=== PATIENT | male | born 1975 | race Caucasian/White ===

== ENCOUNTER 2019-09-18 07:29 | Day surgery (SDC) | payer OTHER ==
[2019-09-17 09:38] LABS: BASOPHILS % (AUTO) 0.4 % (0-1); EOSINOPHILS # (AUTO) 0.5 X10'3 (0-0.9); EOSINOPHILS % (AUTO) 5.7 % (0-6); LYMPHOCYTES # (AUTO) 2.9 X10'3 (1.1-4.8); MEAN CORPUSCULAR HEMOGLOBIN 30.7 PG (27.0-31.0); MEAN CORPUSCULAR VOLUME 90.4 FL (78-98); MONOCYTES # (AUTO) 0.7 X10'3 (0-0.9); MONOCYTES % (AUTO) 8.7 % (2-12); NEUTROPHILS # (AUTO) 4.1 X10'3 (1.8-7.7); NEUTROPHILS % (AUTO) 50.2 % (42-75); PRE OP HEMATOCRIT 44.8 % (42.0-52.0); PRE OP HEMOGLOBIN 15.2 g/dL (14.0-17.9); PRE OP PLATELET COUNT 228 X10'3 (140-440); RED BLOOD COUNT 4.96 X10'6 (4.70-6.10); RED CELL DISTRIBUTION WIDTH 12.5 % (11.5-14.5)
[2019-09-17 09:56] LABS: ALBUMIN 4.3 G/DL (3.4-5.0); ALKALINE PHOSPHATASE 62 IU/L (46-116); BLOOD UREA NITROGEN 14 MG/DL (7-18); BUN/CREATININE RATIO 14.1 (5.4-32.0); CALCIUM 9.4 MG/DL (8.5-10.1); CHLORIDE 103 MMOL/L (99-107); CREATININE 0.99 MG/DL (0.60-1.10); PRE OP ANION GAP 10 (8-16); PRE OP AST 50 U/L (10-37); PRE OP BILIRUB, TOTAL 1.1 MG/DL (0.0-1.0); PRE OP GLUCOSE 98 MG/DL (70-104); PRE OP POTASSIUM 4.2 MMOL/L (3.4-5.1); PRE OP SODIUM 139 MMOL/L (135-145); TOTAL CARBON DIOXIDE 26.1 MMOL/L (24-32); TOTAL PROTEIN 8.4 G/DL (6.4-8.2); eGFR 83 ML/MIN
[2019-09-17 09:57] LABS: PRE OP ALT 134 U/L (30-65)
[~2019-09-18] VITALS: Ht 182.9 cm; Wt 110.7 kg
[2019-09-18] VITALS (13 sets, daily range): BP systolic 124–159; BP diastolic 68–97
[~2019-09-18 07:29] MED LIST: BUPIVAcaine/PF 2.5 mg/ml (0.25%) 30ml vial ONE; LIDOcaine 1% 30ml preserv. free vial ONE; NO HOME MEDS
[2019-09-18] MEDS ORDERED: famotidine 20mg tablet PO ONE (08:35)
[2019-09-18] MEDS ORDERED: ceFAZolin 2gm in dextrose, iso 50 ML IV ONE (08:35)
[2019-09-18] MEDS ORDERED: ringers solution, lacted 1,000 ML IV ONE (08:35)
[2019-09-18] MEDS ORDERED: fentaNYL /PF 50mcg/ml 5ml ampule ONE (12:30)
[2019-09-18] MEDS ORDERED: midazolam 2 mg/2 ml injection ONE (12:30)
[2019-09-18] MEDS ORDERED: labetalol 20mg/4ml (5mg/ml) syringe IV ONE (12:35)
[2019-09-18] MEDS ORDERED: rocuronium 10mg/ml inj IV ONE (12:35)
[2019-09-18] MEDS ORDERED: ondansetron/PF 4mg/2ml inj ONE (12:35)
[2019-09-18] MEDS ORDERED: LIDOcaine 2% (20mg/ml) 5ml vial ONE (12:35)
[2019-09-18] MEDS ORDERED: propofol inj 20 ML IV ONE (12:35)
[2019-09-18] MEDS ORDERED: ringers solution, lacted 1,000 ML IV SCH (12:53)
[2019-09-18] MEDS ORDERED: hydrALAZINE 20mg/ml inj. IV PRN (12:55)
[2019-09-18] MEDS ORDERED: labetalol 20mg/4ml (5mg/ml) syringe IV PRN (12:55)
[2019-09-18] MEDS ORDERED: ondansetron/PF 4mg/2ml inj IV PRN (12:55)
[2019-09-18] MEDS ORDERED: fentaNYL/PF 50MCG/1 ML 2ML syringe IV PRN ×2 (12:55)
[2019-09-18] MEDS ORDERED: morphine 2 MG/ML inj. syringe IV PRN (12:55)
[2019-09-18] MEDS ORDERED: hydrALAZINE 20mg/ml inj. IV ONE (13:01)
[2019-09-18] MEDS ORDERED: glycopyrrolate 0.2mg/ml inj ONE (13:02)
--- NOTE | 2019-09-18 13:24 | NUR ---
Received from OR via [facility], accompanied by Anesthesiologist DR QUEZADA and report given by Anesthesiologist. PT DROWSY, NO S/S OF DISTRESS/DISCOMFORT, ABDOMEN W/3 LAP SITES W/BANDAIDS CDI. Addendum: 09/18/19 at 1405 by Vikki Worthy RN Amended: Links added.
[2019-09-18] MEDS ORDERED: HYDROcodone/acetaminophen 5mg/325mg tablet PO PRN ×2 (13:25)
[2019-09-18] MEDS: morphine 4 MG/ML inj SYRINge IV PRN ×2 (13:35→13:49)
--- NOTE | 2019-09-18 15:44 | NUR ---
D/C INSTRUCTIONS GIVEN AND GONE OVER W/PT WHO VERBALIZED UNDERSTANDING, PT D/CD TO HOME VIA W/C TO PRIVATE VEHICLE W/O INCIDENT. Addendum: 09/18/19 at 1558 by Vikki Worthy RN Amended: Links added.
== END 2019-09-18 15:44 | disposition home or self-care (01) ==
LOC: PAS 07:29
PROVIDERS: ATTEND Surgery
DX: K40.90 Unilateral inguinal hernia, without obstruction or gangrene, not specified as recurrent (principal); E66.9 Obesity, unspecified; Z68.1 Body mass index [BMI] 19.9 or less, adult; Z98.890 Other specified postprocedural states; Z79.899 Other long term (current) drug therapy
CPT/HCPCS: 36415; 49650; 80053; 82948; 85025; C1781; J0360; J2001; J2250; J2270; J2405; J2704; J3010; J3490; S2900; A4215; A4618; J7120